=== PATIENT | female | born 1950 | race Caucasian/White ===

== ENCOUNTER 2018-04-22 13:31 | Emergency (ER) | payer MEDICARE, OTHER ==
[2018-04-22] MEDS ORDERED: TORAdol 30 mg Injection IV ONE (14:11)
[2018-04-22] MEDS ORDERED: Sodium Chloride 0.9% 1000 ML 1,000 ML IV SCH (14:15)
[2018-04-22] MEDS ORDERED: Sodium Chloride 0.9% 1000 ML 1,000 ML ONE ×2 (14:20→15:13)
[2018-04-22] MEDS ORDERED: TORAdol 30 mg Injection ONE (14:21)
--- NOTE | 2018-04-22 14:29 | ERPHSYRPT ---
- History of Present Illness Time Seen by Provider: 04/22/18 13:50 Historian: patient Exam Limitations: clinical condition Patient Subjective Stated Complaint: pt here for left sided abd pain for last 2 hours with no other co's. Triage Nursing Assessment: pt walked in, res easy, skin w/d/p. abd soft, tender, Physician History: PATIENT COMPLAINS OF ACUTE ONSET OF LEFT SIDED ABDOMINAL PAIN OVER THE PAST 2 HOURS, DENIES FEVER, NAUSEA, EMESIS, DIARRHEA, URINARY SYMPTOMS. Timing/Duration: today Activities at Onset: none Abdominal Pain Onset Location: LLQ Pain Radiation: no radiation Severity of Pain-Max: moderate Severity of Pain-Current: moderate Associated Symptoms: denies symptoms Previous symptoms: no prior history Allergies/Adverse Reactions: No Known Drug Allergies Allergy (Unverified 04/22/18 13:53) Hx Influenza Vaccination/Date Given: Yes Hx Pneumococcal Vaccination/Date Given: Yes Immunizations Up to Date: Yes - Review of Systems Constitutional: No Fever, No Chills Eyes: No Symptoms Ears, Nose, & Throat: No Symptoms Respiratory: No Symptoms, No Cough, No Dyspnea Cardiac: No Symptoms, No Chest Pain, No Edema, No Syncope Abdominal/Gastrointestinal: Abdominal Pain, No Nausea, No Vomiting, No Diarrhea Genitourinary Symptoms: No Symptoms, No Dysuria Musculoskeletal: No Symptoms, No Back Pain, No Neck Pain Skin: No Rash Neurological: No Dizziness, No Focal Weakness, No Sensory Changes Psychological: No Symptoms Endocrine: No Symptoms All Other Systems: Reviewed and Negative - Past Medical History Pertinent Past Medical History: No - Past Surgical History Past Surgical History: Yes Gastrointestinal: Cholecystectomy - Social History Smoking Status: Current every day smoker Exposure to second hand smoke: Yes Drug Use: none Patient Lives Alone: Yes - Female History Hx Last Menstrual Period: post Hx Now: No - Nursing Vital Signs Nursing Vital Signs: Initial Vital Signs Temperature 97.6 F 04/22/18 13:41 Pulse Rate 67 04/22/18 13:41 Respiratory Rate 18 04/22/18 13:41 Blood Pressure 134/70 04/22/18 13:41 O2 Sat by Pulse Oximetry 96 04/22/18 13:41 Pain Scale Pain Intensity 9 - Physical Exam General Appearance: mild distress, alert Eye Exam: PERRL/EOMI, eyes nml inspection Ears, Nose, Throat Exam: normal ENT inspection, pharynx normal, moist mucous membranes Neck Exam: normal inspection, non-tender, supple, full range of motion Respiratory Exam: normal breath sounds, lungs clear, No respiratory distress Cardiovascular Exam: regular rate/rhythm, normal heart sounds Gastrointestinal/Abdomen Exam: soft, normal bowel sounds, No tenderness (LEFT LATERAL ABDOMINAL TENDERNESS), No mass Back Exam: normal inspection, normal range of motion, No CVA tenderness, No vertebral tenderness Extremity Exam: normal inspection, normal range of motion, pelvis stable Neurologic Exam: alert, oriented x 3, cooperative, normal mood/affect, nml cerebellar function, sensation nml, No motor deficits Skin Exam: normal color, warm, dry SpO2: 96 - CT Exams Abdomen/Pelvis CT Interpretation: Tele-radiologist Report (NO HYDRONEPHROSIS, NO EVIDENCE OF APPENDICITIS, THERE IS RETAINED FECAL MATTER IN THE ASCENDING AND TRANSVERSE COLON) Ordered Tests: Active Orders 24 hr Category Date Time Status IV Insertion STAT Care 04/22/18 14:10 Active ABDOMEN AND PELVIS W/0 CONTRAS [CT] Stat Exams 04/22/18 14:10 Taken AMYLASE Stat Lab 04/22/18 14:20 Completed BLOOD CULTURE Stat Lab 04/22/18 14:30 Received BMP Stat Lab 04/22/18 14:20 Completed CBC W DIFF Stat Lab 04/22/18 14:20 Completed LIPASE Stat Lab 04/22/18 14:20 Completed UA W/RFX UR CULTURE Stat Lab 04/22/18 14:20 Completed Medication Summary Generic Name Dose Route Start Last Admin Trade Name Freq PRN Reason Stop Dose Admin Sodium Chloride 1,000 mls @ 250 mls/hr 04/22/18 14:15 04/22/18 14:22 Sodium Chloride 0.9% 1000 Ml IV 05/22/18 14:14 250 mls/hr .Q4H REICKA Administration Discontinued Medications Generic Name Dose Route Start Last Admin Trade Name Freq PRN Reason Stop Dose Admin Ketorolac Tromethamine 20 mg 04/22/18 14:11 04/22/18 14:22 Toradol 30 Mg Injection IV 04/22/18 14:12 20 mg STAT ONE Administration Ketorolac Tromethamine Confirm 04/22/18 14:21 Toradol 30 Mg Injection Administered 04/22/18 14:22 Dose 30 mg .ROUTE .STK-MED ONE Morphine Sulfate 6 mg 04/22/18 15:02 04/22/18 15:29 Morphine Sulfate 10 Mg/Ml IV 04/22/18 15:03 6 mg STAT ONE Administration Morphine Sulfate Confirm 04/22/18 15:12 Morphine Sulfate 10 Mg/Ml Administered 04/22/18 15:13 Dose 10 mg .ROUTE .STK-MED ONE Ondansetron HCl 4 mg 04/22/18 15:02 04/22/18 15:29 Zofran 4 Mg/2 Ml Vial IV 04/22/18 15:03 4 mg STAT ONE Administration Ondansetron HCl Confirm 04/22/18 15:13 Zofran 4 Mg/2 Ml Vial Administered 04/22/18 15:14 Dose 4 mg .ROUTE .STK-MED ONE Lab/Rad Data: Laboratory Result Diagrams 04/22/18 14:20 04/22/18 14:20 Laboratory Results 04/22/18 04/22/18 04/22/18 Range/Units 14:20 14:20 14:20 WBC 10.9 H (4.0-10.5) K/mm3 RBC 4.52 (4.1-5.4) M/mm3 Hgb 14.5 (12.0-16.0) gm/dl Hct 43.8 (35-47) % MCV 96.9 (78-100) fl MCH 32.1 H (26-32) pg MCHC 33.1 (32-36) g/dl RDW 14.4 H (11.5-14.0) % Plt Count 291 (150-450) K/mm3 MPV 10.5 H (6-9.5) fl Gran % 50.1 (36.0-66.0) % Eos # (Auto) 0.17 (0-0.5) Absolute Lymphs (auto) 4.37 (1.0-4.6) Absolute Monos (auto) 0.89 (0.0-1.3) Lymphocytes % 39.9 (24.0-44.0) % Monocytes % 8.1 (0.0-12.0) % Eosinophils % 1.6 (0.00-5.0) % Basophils % 0.3 (0.0-0.4) % Absolute Granulocytes 5.48 (1.4-6.9) Basophils # 0.03 (0-0.4) Sodium 138 (137-145) mmol/L Potassium 4.0 (3.5-5.1) mmol/L Chloride 100 (98-107) mmol/L Carbon Dioxide 27 (22-30) mmol/L Anion Gap 14.7 (5-15) MEQ/L BUN 11 (7-17) mg/dL Creatinine 0.72 (0.52-1.04) mg/dL Estimated GFR > 60.0 ML/MIN Glucose 97 (74-106) mg/dL Calcium 9.7 (8.4-10.2) mg/dL Amylase 78 (30-110) U/L Lipase 62 (23-300) U/L Urine Color YELLOW (YELLOW) Urine Appearance SLIGHTLY CLOUDY (CLEAR) Urine pH 6.0 (5-6) Ur Specific Maury 1.015 (1.005-1.025) Urine Protein NEGATIVE (Negative) Urine Ketones NEGATIVE (NEGATIVE) Urine Blood SMALL (0-5) Mayank/ul Urine Nitrite NEGATIVE (NEGATIVE) Urine Bilirubin NEGATIVE (NEGATIVE) Urine Urobilinogen 2 (0-1) mg/dL Ur Leukocyte Esterase NEGATIVE (NEGATIVE) Urine WBC (Auto) 0-2 (0-5) /HPF Urine RBC (Auto) 0-2 (0-2) /HPF U Epithel Cells (Auto) RARE (FEW) /HPF Urine Bacteria (Auto) RARE (NEGATIVE) /HPF Urine Mucus (Auto) SLIGHT (NEGATIVE) /HPF Urine Culture Reflexed NO (NO) Urine Glucose NEGATIVE (NEGATIVE) mg/dL - Progress Progress: improved, pain not gone completely Progress Note: 04/22/18 16:53 IV NORMAL SALINE 500ML/HR TORADOL 20MG, ZOFRAN 4MG, MORPHINE 6MG IV Counseled pt/family regarding: lab results, diagnosis - Departure Time of Disposition: 17:00 Departure Disposition: Home Clinical Impression: RENAL COLIC Condition: Stable Critical Care Time: No Referrals: DAVID ÁLVAREZ MD [Primary Care Provider] - Additional Instructions: VOID THROUGH STRAINER FOR 5 DAYS. NORCO 5/325 EVERY 6 HOUR NEEDED FOR PAIN. CONSULT YOUR PRIMARY CARE PROVIDER FOR EVALUATION. RETURN TO EMERGENCY ROOM FOR INCREASING PAIN. Prescriptions: Hydrocodone/APAP 5-325 Tab^^^ [Pike 5-325 Tablet^^^] 1 each PO Q6HPRN PRN #16 tablet MDD 4 PRN Reason: Pain
[2018-04-22 14:37] LABS: BASOPHIL % 0.3 % (0.0-0.4); Basophil (Absolute #) 0.03 (0-0.4); Eosinophil % 1.6 % (0.00-5.0); Eosinophil (Absolute #) 0.17 (0-0.5); Granulocyte Absolute (ANC) 5.48 (1.4-6.9); Granulocytes % 50.1 % (36.0-66.0); Hematocrit 43.8 % (35-47); Hemoglobin 14.5 gm/dl (12.0-16.0); Lymphocyte (Absolute #) 4.37 (1.0-4.6); Lymphocytes % 39.9 % (24.0-44.0); Mean Cell Volume 96.9 fl (78-100); Mean Corpuscular Hemoglobin 32.1 pg (26-32); Mean Corpuscular Hgb Concent. 33.1 g/dl (32-36); Mean Platelet Volume 10.5 fl (6-9.5); Monocyte (Absolute #) 0.89 (0.0-1.3); Monocytes % 8.1 % (0.0-12.0); Platelet Count 291 K/mm3 (150-450); Red Blood Count 4.52 M/mm3 (4.1-5.4); Red Cell Distribution Width 14.4 % (11.5-14.0); White Blood Count 10.9 K/mm3 (4.0-10.5)
[2018-04-22 14:40] LABS: Appearance SLIGHTLY CLOUDY (CLEAR); Bilirubin NEGATIVE (NEGATIVE); Blood SMALL Ery/ul (0-5); Epithelial Cells RARE /HPF (FEW); Glucose NEGATIVE (NEGATIVE); Ketones NEGATIVE (NEGATIVE); Leukocyte Esterase NEGATIVE (NEGATIVE); Mucus SLIGHT /HPF (NEGATIVE); Nitrite NEGATIVE (NEGATIVE); Protein,Urine Dip NEGATIVE (Negative); RBC 0-2 /HPF (0-2); Specific Gravity 1.015 (1.005-1.025); Urobilinogen 2 mg/dL (0-1); WBC 0-2 /HPF (0-5)
[2018-04-22 14:42] LABS: Bacteria RARE /HPF (NEGATIVE)
[2018-04-22 14:53] LABS: AMYLASE 78 U/L (30-110); ANION GAP 14.7 MEQ/L (5-15); BLOOD UREA NITROGEN 11 mg/dL (7-17); CHLORIDE 100 mmol/L (98-107); Calcium 9.7 mg/dL (8.4-10.2); Carbon Dioxide 27 mmol/L (22-30); Creatinine 1 0.72 mg/dL (0.52-1.04); Glucose 97 mg/dL (74-106); LIPASE 62 U/L (23-300); SODIUM 138 mmol/L (137-145)
[2018-04-22] MEDS ORDERED: Zofran 4 MG/2 ML VIAL IV ONE (15:02)
[2018-04-22] MEDS ORDERED: MORPHINE SULFATE 10 MG/ML IV ONE (15:02)
[2018-04-22] MEDS ORDERED: MORPHINE SULFATE 10 MG/ML ONE (15:12)
[2018-04-22] MEDS ORDERED: Zofran 4 MG/2 ML VIAL ONE (15:13)
[2018-04-22 15:34] VITALS: BP 128/64; PULSE 67; O2SAT 96
--- NOTE | 2018-04-22 20:39 | XRAY ---
Indication: Left abdomen pain. Nausea and vomiting. Multiple contiguous axial images obtained through the abdomen and pelvis without contrast as ordered. Comparison: Non-. Lung bases clear. Heart is not enlarged. Small hiatal hernia. Noncontrasted stomach and bowel loops appear nonobstructed. Normal appendix. Mild diffuse scattered colonic fecal debris throughout. Mild sigmoid diverticulosis without diverticulitis. No free fluid/air. Previous cholecystectomy. Remaining liver, pancreas, spleen, adrenal glands, kidneys, ureters, bladder, and aorta appear unremarkable for noncontrast exam. Mild scattered aortoiliac calcifications without AAA. Osseous structures with mild degenerative changes throughout the spine. No ventral or inguinal hernias. Impression: 1. Fecal stasis without obstruction and sigmoid diverticulosis without diverticulitis. 2. Small hiatal hernia. 3. Remaining CT abdomen/pelvis without contrast exam is negative. Comment: Preliminary interpretation was made by [facility]. No critical discrepancy. CTDI 16.28
== END 2018-04-22 17:13 | disposition home or self-care (01) ==
LOC: ED 13:31
DX: N23 Unspecified renal colic (principal); R10.32 Left lower quadrant pain
CPT/HCPCS: 36415; 74176; 80048; 81001; 82150; 83690; 85025; 87040; 96360; 96361; 96374; 96375; 99284; J1885; J2270; J2405

== ENCOUNTER 2021-03-10 09:33 | Day surgery (SDC) | payer MEDICARE, OTHER ==
[2021-03-10] MEDS ORDERED: Sodium Chloride 0.9% 10 ML FLUSH Syringe IJ ONE (09:34)
[2021-03-10] MEDS ORDERED: Depo-Medrol 40 MG/ML IM ONE (09:34)
[2021-03-10] MEDS ORDERED: DIPRIVAN 200 MG/20 ML IV ONE (11:42)
[2021-03-10] MEDS ORDERED: Lactated Ringers 1,000 ML IV ONE (12:26)
--- NOTE | 2021-03-10 12:53 | XRAY ---
Indication: Right L4-S1 transforaminal MITCH. Intraoperative fluoroscopy provided for 26 seconds. 3 digital spot image submitted for interpretation demonstrate posterior needle tips projecting over the expected right L4 and L5 nerve roots. Small amount of contrast injected for needle tip placement. Correlate with intraoperative findings/report.
--- NOTE | 2021-03-10 12:58 | XRAY ---
26 seconds fluoroscopy time in surgery for right L4-S1 transforaminal MITCH.
== END 2021-03-10 12:08 | disposition home or self-care (01) ==
LOC: SDC-PAIN 09:33
PROVIDERS: ATTEND Psychiatry & Neurology Pain Medicine
DX: M54.16 Radiculopathy, lumbar region (principal); F41.9 Anxiety disorder, unspecified; F32.9 Major depressive disorder, single episode, unspecified; Z79.899 Other long term (current) drug therapy
CPT/HCPCS: 64483; 64484; 72100; 77003; J1030; J2704; Q9966

== ENCOUNTER 2021-03-15 16:07 | Emergency (ER) | payer MEDICARE, OTHER ==
--- NOTE | 2021-03-15 16:38 | ERPHSYRPT ---
- History of Present Illness Source: patient Exam Limitations: other (Poor historian) Patient Subjective Stated Complaint: PT states "I have back problems and I got a spinal injection on february and have not been good since. I could barely walk last night." Triage Nursing Assessment: PT presented alert and oriented X 3, skin pwd. pt ambulates slowly, pt lower back red and swollen Physician History: 71 yo wf w 4 month h/o sciatic pain for which she received "injections" at pain clinic on 03/10 complains of worse pain since the injections. Pain is rated an 8 on scale and is worse w movement. She denies fever/dysuria/abdominal pain/chest pain/dyspnea/hematuria. Timing/Duration: other (4 months/worse) Method of Injury: unknown Quality: sharp Back Pain Location: lumbar spine Back Pain Radiation: lower legs (right) Severity of Pain-Max: severe Severity of Pain-Current: severe Modifying Factors: Improves With: movement Associated Symptoms: lower back pain, No fever, No chills, No sweating, No urinary incontinence, No loss of bowel control, No constipation, No nausea, No vomiting, No problems urinating, No light-headedness, No dizziness, No numbness in legs/feet, No weakness, No sensory/motor loss, No tingling in legs/feet, No muscle spasms Previous symptoms: same symptoms as today Allergies/Adverse Reactions: celecoxib [From Celebrex] Allergy (Intermediate, Verified 03/15/21 16:26) hives/vomiting Sulfa (Sulfonamide Antibiotics) Allergy (Intermediate, Verified 03/15/21 16:26) hives/vomiting Home Medications: No Reportable Medications [No Reported Medications] 03/15/21 [History] Hx Tetanus, Diphtheria Vaccination/Date Given: No Hx Influenza Vaccination/Date Given: Yes Hx Pneumococcal Vaccination/Date Given: Yes Immunizations Up to Date: Yes Travel Risk - International Travel Have you traveled outside of the country in past 3 weeks: No - Coronavirus Screening Are you exhibiting any of the following symptoms?: No Close contact with a COVID-19 positive Pt in past 14-21 Days: No - Vaccine Status Have you recieved a Covid-19 vaccination: Yes Pipe [place]: Moderna - Vaccination Dates Date of 2cond Vaccination (if applicable): 07/2020 Comment: booster in beginning of February 2021 - Review of Systems Constitutional: No Symptoms Eyes: No Symptoms Ears, Nose, & Throat: No Symptoms Respiratory: No Symptoms Cardiac: No Symptoms Abdominal/Gastrointestinal: No Symptoms Genitourinary Symptoms: No Symptoms Musculoskeletal: No Symptoms, Arthralgias Skin: No Symptoms Neurological: No Symptoms Psychological: No Symptoms Endocrine: No Symptoms Hematologic/Lymphatic: No Symptoms Immunological/Allergic: No Symptoms - Past Medical History Pertinent Past Medical History: Yes Respiratory History: COPD - Past Surgical History Past Surgical History: Yes Gastrointestinal: Cholecystectomy - Social History Smoking Status: Current every day smoker Exposure to second hand smoke: Yes Drug Use: none Patient Lives Alone: No - Female History Hx Now: No - Nursing Vital Signs Nursing Vital Signs: Initial Vital Signs Temperature 98.8 F 03/15/21 16:18 Pulse Rate 93 H 03/15/21 16:18 Respiratory Rate 22 03/15/21 16:18 Blood Pressure 151/69 03/15/21 16:18 O2 Sat by Pulse Oximetry 98 03/15/21 16:18 Pain Scale Pain Intensity [] 8 Pain Intensity 6 Hypertensive - Physical Exam General Appearance: no apparent distress Eye Exam: PERRL/EOMI, eyes nml inspection Ears, Nose, Throat Exam: normal ENT inspection, TMs normal, pharynx normal, moist mucous membranes Neck Exam: normal inspection, non-tender, supple, full range of motion, No meningismus, No mass, No Brudzinski, No Kernig's, No carotid bruit Respiratory Exam: normal breath sounds, lungs clear, airway intact Cardiovascular Exam: regular rate/rhythm, normal heart sounds, normal peripheral pulses, No murmur Gastrointestinal Exam: soft, normal bowel sounds, No tenderness Back Exam: vertebral tenderness (Mild L-spine TTP) Extremity Exam: normal inspection, normal range of motion, pelvis stable Peripheral Pulses: carotid (R): 2+, carotid (L): 2+ Neurologic Exam: alert, oriented x 3, cooperative, christmas tree grader II-XII nml as tested, nml cerebellar function, sensation nml Skin Exam: normal color, warm, dry, No rash Lymphatic Exam: No adenopathy SpO2 Interpretation: normal SpO2: 98 O2 Delivery: Room Air - CT Exams Lumbar Spine CT Interpretation: Discussed w/radiologist (DDD/Nothing acute) Ordered Tests: Active Orders 24 hr Category Date Time Status LUMBAR SPINE W/O [CT] Stat Exams 03/15/21 16:35 Completed Medication Summary Discontinued Medications Generic Name Dose Route Start Last Admin Trade Name Gayatri PRN Reason Stop Dose Admin Hydrocodone Bitart/Acetaminophen 1 tablet 03/15/21 17:33 03/15/21 17:37 Hydrocodone/Acetamin 10-325 Mg Tablet PO 03/15/21 17:34 1 tablet STAT ONE Administration Ketorolac Tromethamine 15 mg 03/15/21 17:32 03/15/21 17:37 Ketorolac Tromethamine 30 Mg/Ml Inj IM 03/15/21 17:33 15 mg STAT ONE Administration Ketorolac Tromethamine Confirm 03/15/21 17:34 Ketorolac Tromethamine 30 Mg/Ml Inj Administered 03/15/21 17:35 Dose 30 mg .ROUTE .STK-MED ONE - Progress Progress Note: 03/15/21 17:34 Toradol 15mg IM Norco10 po x1 03/15/21 17:35 Pain Management to see at 8:45 03/16/21 Counseled pt/family regarding: diagnosis, need for follow-up, rad results - Departure Departure Disposition: Home Clinical Impression: Sciatica Condition: Stable Critical Care Time: No Referrals: DAVID ÁLVAREZ MD [Primary Care Provider] - Follow up/PCP as directed TRINIDAD CRUZ MD [CONSULTING PHYSICIAN] - Follow up/PCP as directed Instructions: Low Back Pain (DC), Sciatica (DC) Additional Instructions: Dr. Cruz 03/16/21 8:45AM
[2021-03-15 17:16] VITALS: BP 125/54; PULSE 90
--- NOTE | 2021-03-15 17:27 | XRAY ---
Indication: Chronic low back pain radiating right leg 4 months. Status post pain management injection March 10, 2021. Multiple contiguous axial images obtained through the lumbar spine without contrast. Sagittal and coronal reformatted images obtained. Comparison: April 22, 2018. Axial images again demonstrates broad-based L2-S1 disc bulge with anterior endplate spurring and minimal L5-S1 degenerative vacuum disc phenomena. Stable left L5-S1 foraminal stenosis due to broad base disc osteophyte complex. No obvious large disc herniation or canal stenosis. Facets are symmetric. Sagittal and coronal reformatted images again demonstrates normal lumbar lordosis with mild levoscoliosis centered at L3. No acute compression fracture or subluxation. Visualized noncontrasted soft tissues again demonstrates small hiatal hernia and mild scattered aortoiliac calcifications. Paraspinal soft tissues are unremarkable. Impression: 1. Again multilevel degenerative spondylosis greatest L5-S1, mild levoscoliosis, small hiatal hernia, and scattered arteriosclerotic calcifications. 2. Remaining CT lumbar spine without contrast exam is negative.
[2021-03-15] MEDS ORDERED: TORAdol 30 mg Injection IM ONE (17:32)
[2021-03-15] MEDS ORDERED: HYDROCODONE-ACETAMIN 10-325 MG PO ONE (17:33)
[2021-03-15] MEDS ORDERED: TORAdol 30 mg Injection ONE (17:34)
[2021-03-15 17:38] VITALS: O2SAT 98
== END 2021-03-15 17:50 | disposition home or self-care (01) ==
LOC: ED 16:07
DX: M54.41 Lumbago with sciatica, right side (principal); J44.9 Chronic obstructive pulmonary disease, unspecified; Z72.0 Tobacco use
CPT/HCPCS: 72131; 96372; 99284; J1885; A9270-GY